=== PATIENT | male | born 1980 | race Caucasian/White ===

== ENCOUNTER 2019-04-26 23:49 | Emergency (ER) | payer OTHER ==
[2019-04-27] VITALS: BP 164/118
[2019-04-27] MEDS ORDERED: Penicillin VK TAB* 250 MG PO ONE (01:32)
[2019-04-27] MEDS ORDERED: Ketorolac INJ* 30 MG/ML 1 ML VIAL IM ONE (01:32)
--- NOTE | 2019-04-27 01:32 | ED ---
Throat Pain/Nasal Congestion - HPI Summary HPI Summary: 38 year old male presents with dental pain since yesterday. he states that pain is in his right upper jaw and radiates to his ear. Denies any chest pain or shortness breath. No pain or swelling around eye. No nausea and no vomiting. He states the cold makes the pain better. Has a history of bad teeth. - History of Current Complaint Chief Complaint: EDDentalPain Time Seen by Provider: 04/27/19 01:21 - Allergies/Home Medications Allergies/Adverse Reactions: Allergies Allergy/AdvReac Type Severity Reaction Status Date / Time MS Levothyroxine Allergy Intermediate Swelling Verified 04/27/19 01:23 [Levothyroxine] Of Face,Lips,& Throat PMH/Surg Hx/FS Hx/Imm Hx Endocrine/Hematology History: Denies: Hx Anticoagulant Therapy Respiratory History: Denies: Hx Asthma - Immunization History Date of Tetanus Vaccine: PT STATES UNSURE Date of Influenza Vaccine: NONE Infectious Disease History: No Infectious Disease History: Denies: Traveled Outside the [place] in Last 30 Days - Family History Known Family History: Positive: Non-Contributory - Social History Alcohol Use: Occasionally Substance Use Type: Reports: None Smoking Status (MU): Heavy Every Day Tobacco Smoker Review of Systems Negative: Fever Positive: Dental Pain Negative: Chest Pain Negative: Shortness Of Breath All Other Systems Reviewed And Are Negative: Yes Physical Exam Triage Information Reviewed: Yes Vital Signs On Initial Exam: Initial Vitals Temp Pulse Resp BP Pulse Ox 98.2 F 75 16 164/118 98 04/26/19 23:56 04/26/19 23:56 04/26/19 23:56 04/26/19 23:56 04/26/19 23:56 Vital Signs Reviewed: Yes Appearance: Positive: Well-Appearing Skin: Positive: Warm, Dry Head/Face: Positive: Normal Head/Face Inspection Eyes: Positive: Normal, EOMI, DARI, Conjunctiva Clear ENT: Positive: Pharynx normal, TMs normal Dental: Positive: Gross Decay/Caries @ - throughout, Other - erythema to right upper jaw Respiratory/Lung Sounds: Positive: Clear to Auscultation, Breath Sounds Present Cardiovascular: Positive: Normal, RRR Musculoskeletal: Positive: Normal Neurological: Positive: Normal Psychiatric: Positive: Normal Diagnostics - Vital Signs Vital Signs Temp Pulse Resp BP Pulse Ox 04/26/19 23:56 98.2 F 75 16 164/118 98 - Laboratory Lab Statement: Any lab studies that have been ordered have been reviewed, and results considered in the medical decision making process. EENT Course/Dx - Course Course Of Treatment: 38 year old male presents with dental pain since yesterday. he states that pain is in his right upper jaw and radiates to his ear. Denies any chest pain or shortness breath. No pain or swelling around eye. No nausea and no vomiting. He states the cold makes the pain better. Has a history of bad teeth. On exam no swelling noted. TM normal. Has erythema noted to right upper gumline. We will treat with penicillin. gave dose of toradol for pain. Told to follow up with dentist. Patient understands and agrees plan. - Differential Diagnoses Differential Diagnoses: Dental Abscess, Dental Caries, Fractured Tooth - Diagnoses Provider Diagnoses: Dental infection Discharge - Sign-Out/Discharge Documenting (check all that apply): Patient Departure Patient Received Moderate/Deep Sedation with Procedure: No - Discharge Plan Condition: Good Disposition: HOME Prescriptions: Penicillin VK TAB* [Penicillin VK 250 mg Tab*] 500 mg PO QID #27 tab Patient Education Materials: Toothache (ED) Referrals: No Primary Care Phys,NOPCP [Primary Care Provider] - Additional Instructions: Take antibiotics: 4 times a day for 7 days, first dose given in ED Use ibuprofen or tyenlol every 6 hours Return to ED if develop fever, shortness of breath, pain with eye movement or swelling around eye Establish care with primary care physician follow up with dentist as soon as possible - Billing Disposition and Condition Condition: GOOD Disposition: Home
== END 2019-04-27 01:43 | disposition home or self-care (01) ==
LOC: ED 23:49
DX: K04.7 Periapical abscess without sinus (principal); Z88.1 Allergy status to other antibiotic agents; F17.200 Nicotine dependence, unspecified, uncomplicated
CPT/HCPCS: 96372; 99282; A9270-GY; J1885

== ENCOUNTER 2019-08-18 17:07 | Emergency (ER) | payer OTHER ==
--- OUTSIDE RECORDS SUMMARY | 2019-08-18 17:31 | XMS REPORT ---
:1980 Author Organization [facility] Care Team Providers Name Role Phone Garfield Horton Unavailable Unavailable PROBLEMS Unknown Problems ALLERGIES No Information ENCOUNTERS Encounter Location Date Diagnosis [place] [facility] [address] [place], [place] [address] Formerly [facility] [address] [place], [place] [address] Formerly [facility] [address] [place] [address] [facility] [address] [place] [address] [facility] [address] [place] [address] [facility] [address] [place], [place] [address] [facility]ly [facility] [address] [place], [place], [place] R68.89 [place] [address] and Tick bite, initial encounter [id number] [place] [facility] [address] [place], [place] [address] [facility]ly [facility] [address] [place], [place], [place] K04.7 [place] [address] [place] [facility] [address] [place], [place] [address] IMMUNIZATIONS No Known Immunizations SOCIAL HISTORY Never Assessed REASON FOR REFERRAL FUNCTIONAL STATUS PLAN OF CARE VITAL SIGNS Height 66.6 in 2019-07-15 Blood pressure systolic 139 mm Hg 2019-07-15 Blood pressure diastolic 89 mm Hg 2019-07-15 MEDICATIONS Medication Instructions Dosage Frequency Start Date End Date Duration Status Tamiflu 75 MG Orally Twice a 1 capsule 12h 25 Feb, 5 day(s) Active day 2019 PROCEDURES Procedure Date Ordered Result Body Site BLOOD PRESSURE, MEASURED Jul 15, 2019 EXTRAC ERUPTED TOOTH/EXPOSED ROOT Jul 15, 2019 RESULTS No Results REASON FOR VISIT Insurance Providers [facility] Health Member Patient Patient Patient Patient Patient Subscriber Subscriber Subscriber Group Insurance Plan Plan Plan Plan ID Relationship Address Phone Name Date of ID Name Date of No Type Insurance Insurance Insurance Coverage to Subscriber Address Phone Name Dates Medicaid [address] [phone] Medicaid self Bobby [id number] [facility] [address] [place] [address] [place] [phone] [place] self Bobby [id number] Medicaid [id number] Medicaid [place] [address] [employer] [place] [phone] [place] self Bobby [id number] Medicaid [place] [address] [place] [address] Medical MEDICAL (GENERAL) HISTORY Type Description Date Medical History back pain Medical History thyroid disease
--- OUTSIDE RECORDS SUMMARY | 2019-08-18 17:31 | XMS REPORT ---
:1980 Author Organization [facility] Care Team Providers Name Role Phone Garfield Horton Unavailable Unavailable PROBLEMS Unknown Problems ALLERGIES No Information ENCOUNTERS Encounter Location Date Diagnosis [facility] [address] [place], [place] [address] [facility] [address] [place], [place] [address] [facility] [address] [place], [place] [address] [facility] [address] [place] [place], [place] [address] [facility] [address] [place], Feb, Flu[place] R68.89 [place] [address] and Tick bite, initial encounter [id number] [facility] [address] [place], [place] [address] [facility] [address] [place], [place], Dental [place] K04.7 [place] [address] [facility] [address] [place], [place] [address] IMMUNIZATIONS No Known Immunizations SOCIAL HISTORY Never Assessed REASON FOR REFERRAL FUNCTIONAL STATUS PLAN OF CARE VITAL SIGNS MEDICATIONS Medication Instructions Dosage Frequency Start Date End Date Duration Status Tamiflu 75 MG Orally Twice a 1 capsule 12h 25 Feb, 5 day(s) Active day 2019 PROCEDURES Procedure Date Ordered Result Body Site INTRAORL-PERIAPICAL 1 FILM [id number] Jul 06, 2019 LTD ORAL EVALUATION-PROBLEM FOCUS Jul 06, 2019 RESULTS No Results REASON FOR VISIT walk in Insurance Providers [facility] Health Member Patient Patient Patient Patient Patient Subscriber Subscriber Subscriber Group Insurance Plan Plan Plan Plan ID Relationship Address Phone Name Date of ID Name Date of No Type Insurance Insurance Insurance Coverage to Subscriber Address Phone Name Dates [place] [phone] [place] self Bobby [id number] Medicaid [id number] Medicaid [facility] [address] [employer] Medicaid [address] [phone] Medicaid self Bobby [id number] [address] [facility] [address] [place] [address] [place] [phone] [place] self [place] [id number] Medicaid [place] [address] [place] [address] Medical MEDICAL (GENERAL) HISTORY Type Description Date Medical History back pain Medical History thyroid disease
[2019-08-18 19:11] LABS: ABS Lymphocytes 0.8 10^3/ul (1.0-4.8); ABS Monocytes 0.7 10^3/ul (0-0.8); ABS Neutrophils 11.2 10^3/ul (1.5-7.7); Eosinophil % 0.1 %; Hematocrit 41 % (42-52); Hemoglobin 14.3 g/dL (14.0-18.0); Lymphocyte % 6.3 %; Mean Corpuscular HGB Conc 35 g/dL (31-36); Mean Corpuscular Hemoglobin 32 pg (27-31); Mean Corpuscular Volume 93 fL (80-94); Mean Platelet Volume 7.1 fL (7.4-10.4); Platelet Count 214 10^3/uL (150-450); Red Blood Count 4.42 10^6 /uL (4.18-5.48); Red Cell Distribution Width 13 % (10-15); White Blood Count 12.8 10^3/uL (3.5-10.8)
[2019-08-18 19:23] LABS: Albumin 4.2 g/dL (3.2-5.2); Albumin/Globulin Ratio 1.8 (1-3); BUN/Creatinine Ratio 19.1 (8-20); C Reactive Protein 1.91 mg/L (<8.01); Calcium 8.9 mg/dL (8.6-10.3); EGFR African American 115.8 (>60); EGFR Non-African American 95.7 (>60); Globulin 2.4 g/dL (2-4); Potassium 3.9 mmol/L (3.5-5.0); Total Bilirubin 0.4 mg/dL (0.2-1.0); Total Protein 6.6 g/dL (6.4-8.9)
[2019-08-18 19:24] LABS: Troponin I 0.01 ng/mL (<0.04)
--- NOTE | 2019-08-18 19:59 | ED ---
Substance Abuse/Use - HPI Summary HPI Summary: Patient was found by a [employer] in parking lot complaining that he was being attacked by these. Patient admits to crack cocaine use at 1500 today. Per EMS patient was tachycardia at 110 and diaphoretic. Patient currently denies any symptoms, is alert and oriented. Family denies AMS. Medical history is none. - History Of Current Complaint Chief Complaint: EDSubstanceAbuse Stated Complaint: POSSIBLE OVERDOSE Time Seen by Provider: 08/18/19 18:51 Hx Obtained From: Patient, Family/[employer] Onset/Duration of Drug/ETOH Abuse: Minutes Severity Initially: Moderate Severity Currently: None Associated Signs And Symptoms: Negative - Allergies/Home Medications Allergies/Adverse Reactions: Allergies Allergy/AdvReac Type Severity Reaction Status Date / Time levothyroxine Allergy swelling Verified 08/18/19 18:54 of face, lips, and throat Home Medications: Home Medications NK [No Home Medications Reported] 08/18/19 [History Confirmed 08/18/19] PMH/Surg Hx/FS Hx/Imm Hx Endocrine/Hematology History: Denies: Hx Anticoagulant Therapy Respiratory History: Denies: Hx Asthma History: Denies: Hx Dialysis Sensory History: Denies: Hx Eye Prosthesis Opthamlomology History: Denies: Hx Legally Blind EENT History: Denies: Hx Deafness Neurological History: Denies: Hx Dementia Psychiatric History: Denies: Hx Autism - Immunization History Date of Tetanus Vaccine: PT STATES UNSURE Date of Influenza Vaccine: NONE Infectious Disease History: No Infectious Disease History: Denies: Traveled Outside the US in Last 30 Days - Family History Known Family History: Positive: Non-Contributory - Social History Alcohol Use: Rare Substance Use Type: Reports: Cocaine, Excessive Caffeine Smoking Status (MU): Heavy Every Day Tobacco Smoker Review of Systems Constitutional: Negative Eyes: Negative ENT: Negative Cardiovascular: Negative Respiratory: Negative Gastrointestinal: Negative Genitourinary: Negative Musculoskeletal: Negative Skin: Negative Neurological: Negative Psychological: Normal All Other Systems Reviewed And Are Negative: Yes Physical Exam - Summary Physical Exam Summary: Alert and oriented. Calm and cooperative with exam. Triage Information Reviewed: Yes Vital Signs On Initial Exam: Initial Vitals Temp Pulse Resp BP Pulse Ox 98.1 F 102 24 123/74 95 08/18/19 17:21 08/18/19 17:21 08/18/19 17:21 08/18/19 17:21 08/18/19 17:21 Vital Signs Reviewed: Yes Appearance: Positive: Well-Appearing Skin: Positive: Warm Head/Face: Positive: Normal Head/Face Inspection Eyes: Positive: Normal Neck: Positive: Supple Respiratory/Lung Sounds: Positive: Clear to Auscultation Cardiovascular: Positive: Normal Abdomen Description: Positive: Nontender Musculoskeletal: Positive: Normal Neurological: Positive: Normal Psychiatric: Positive: Normal AVPU Assessment: Alert - [place] Coma Scale Best Eye Response: 4 - Spontaneous Best Motor Response: 6 - Obeys Commands Best Verbal Response: 5 - Oriented Coma Scale Total: 15 Procedures - Sedation Patient Received Moderate/Deep Sedation with Procedure: No Diagnostics - Vital Signs Vital Signs Temp Pulse Resp BP Pulse Ox 08/18/19 19:25 87 15 127/78 96 08/18/19 19:00 105 15 96 08/18/19 18:55 101 16 117/72 97 08/18/19 18:25 85 16 126/73 96 08/18/19 18:00 88 19 94 08/18/19 17:55 90 20 119/73 92 08/18/19 17:25 102 12 123/74 97 08/18/19 17:21 98.1 F 106 21 123/74 90 - Laboratory Lab Results: Lab Results 08/18/19 08/18/19 Range/Units 18:59 18:59 WBC 12.8 H (3.5-10.8) 10^3/uL RBC 4.42 (4.18-5.48) 10^6 /uL Hgb 14.3 (14.0-18.0) g/dL Hct 41 L (42-52) % MCV 93 (80-94) fL MCH 32 H (27-31) pg MCHC 35 (31-36) g/dL RDW 13 (10-15) % Plt Count 214 (150-450) 10^3/uL MPV 7.1 L (7.4-10.4) fL Neut % (Auto) 87.6 % Lymph % (Auto) 6.3 % [place] % (Auto) 5.7 % Eos % (Auto) 0.1 % Baso % (Auto) 0.3 % Absolute Neuts (auto) 11.2 H (1.5-7.7) 10^3/ul Absolute Lymphs (auto) 0.8 L (1.0-4.8) 10^3/ul Absolute Monos (auto) 0.7 (0-0.8) 10^3/ul Absolute Eos (auto) 0.0 (0-0.6) 10^3/ul Absolute Basos (auto) 0.0 (0-0.2) 10^3/ul Absolute Nucleated RBC 0.0 10^3/ul Nucleated RBC % 0.0 Sodium 137 (135-145) mmol/L Potassium 3.9 (3.5-5.0) mmol/L Chloride 108 (101-111) mmol/L Carbon Dioxide 25 (22-32) mmol/L Anion Gap 4 (2-11) mmol/L BUN 17 (6-24) mg/dL Creatinine 0.89 (0.67-1.17) mg/dL Est GFR ( Amer) 115.8 (>60) Est GFR (Non-Af Amer) 95.7 (>60) BUN/Creatinine Ratio 19.1 (8-20) Glucose 109 H (70-100) mg/dL Calcium 8.9 (8.6-10.3) mg/dL Total Bilirubin 0.40 (0.2-1.0) mg/dL AST 14 (13-39) U/L ALT 14 (7-52) U/L Alkaline Phosphatase 48 (34-104) U/L Troponin I 0.01 (<0.04) ng/mL C-Reactive Protein 1.91 (<8.01) mg/L Total Protein 6.6 (6.4-8.9) g/dL Albumin 4.2 (3.2-5.2) g/dL Globulin 2.4 (2-4) g/dL Albumin/Globulin Ratio 1.8 (1-3) Result Diagrams: 08/18/19 18:59 08/18/19 18:59 Lab Statement: Any lab studies that have been ordered have been reviewed, and results considered in the medical decision making process. Course/Dx - Course Course Of Treatment: Patient was found by a [employer] in parking lot complaining that he was being attacked by these. Patient admits to crack cocaine use at 1500 today. Per EMS patient was tachycardia at 110 and diaphoretic. Patient currently denies any symptoms, is alert and oriented. Family denies AMS. Medical history is none. Vital signs within normal limits. WBC 12.8. Labs otherwise unremarkable. EKG sinus rhythm, normal RICHARDSON, heart rate 86. Currently alert and oriented. At baseline per patient and family. - Diagnoses Provider Diagnoses: Substance abuse Discharge ED - Sign-Out/Discharge Documenting (check all that apply): Patient Departure - Discharge Plan Condition: Stable Disposition: HOME Patient Education Materials: Cocaine Abuse (ED) Referrals: No Primary Care Phys,NOPCP [Primary Care Provider] - Additional Instructions: Stop taking crack cocaine. Follow-up with outpatient resources for help discontinuing substance abuse. - Billing Disposition and Condition Condition: STABLE Disposition: Home - Attestation Statements Provider Attestation: I was available for consult. This patient was seen by the KAYY. The patient was not presented to, seen by, or examined by me. Austin Bliss MD
[2019-08-18 20:14] VITALS: BP 127/79
== END 2019-08-18 20:14 | disposition home or self-care (01) ==
LOC: ED 17:07
DX: F14.10 Cocaine abuse, uncomplicated (principal); F17.200 Nicotine dependence, unspecified, uncomplicated; Z88.8 Allergy status to other drugs, medicaments and biological substances
CPT/HCPCS: 36415; 80053; 84484; 85025; 86140; 93005; 99283

== ENCOUNTER 2019-09-04 21:26 | Emergency (ER) | payer OTHER ==
[2019-09-04] MEDS ORDERED: NS 0.9% 1000 ML** 1,000 ML IV ONE (21:52)
[2019-09-04] MEDS ORDERED: diPHENhydraMINE IV* 50 MG/ML 1 ml VIAL (BENADRYL) IV ONE (21:52)
[2019-09-04 22:16] LABS: ABS Basophils 0.1 10^3/ul (0-0.2); ABS Lymphocytes 0.9 10^3/ul (1.0-4.8); ABS Neutrophils 12.3 10^3/ul (1.5-7.7); Eosinophil % 0.1 %; Hematocrit 43 % (42-52); Hemoglobin 14.6 g/dL (14.0-18.0); Lymphocyte % 6.6 %; Mean Corpuscular HGB Conc 34 g/dL (31-36); Mean Corpuscular Hemoglobin 32 pg (27-31); Mean Corpuscular Volume 95 fL (80-94); Mean Platelet Volume 6.8 fL (7.4-10.4); Nucleated Red Blood Cells % 0.1; Platelet Count 230 10^3/uL (150-450); Red Blood Count 4.54 10^6 /uL (4.18-5.48); Red Cell Distribution Width 14 % (10-15); White Blood Count 14.3 10^3/uL (3.5-10.8)
--- NOTE | 2019-09-04 22:17 | ED ---
Complex/Multi-Sys Presentation - HPI Summary HPI Summary: 38-year-old male presents with allergic reaction. He states he got stung in his left arm about an hour ago. He states that since then he's had a sore throat and dizziness. He states he feels a little dehydrated. Denies any chest pressure or shortness of breath. Admits to nausea but no vomiting or abdominal pain. He hasn't taking anything for symptoms. Never had this reaction before. He did drink some alcohol today. Denies any drug use. No rash. - History Of Current Complaint Chief Complaint: EDAllergicReaction Time Seen by Provider: 09/04/19 21:46 - Allergies/Home Medications Allergies/Adverse Reactions: Allergies Allergy/AdvReac Type Severity Reaction Status Date / Time levothyroxine Allergy swelling Verified 09/04/19 22:13 of face, lips, and throat PMH/Surg Hx/FS Hx/Imm Hx Endocrine/Hematology History: Denies: Hx Anticoagulant Therapy Respiratory History: Denies: Hx Asthma History: Denies: Hx Dialysis Sensory History: Denies: Hx Eye Prosthesis, Hx Legally Blind, Hx Deafness Opthamlomology History: Denies: Hx Eye Prosthesis, Hx Legally Blind Neurological History: Denies: Hx Dementia Psychiatric History: Denies: Hx Autism - Immunization History Date of Tetanus Vaccine: PT STATES UNSURE Date of Influenza Vaccine: NONE Infectious Disease History: No Infectious Disease History: Denies: Traveled Outside the [place] in Last 30 Days - Family History Known Family History: Positive: Non-Contributory - Social History Alcohol Use: Rare Substance Use Type: Reports: Cocaine, Excessive Caffeine Smoking Status (MU): Heavy Every Day Tobacco Smoker Review of Systems Negative: Fever Positive: Sore Throat Negative: Chest Pain Negative: Shortness Of Breath Negative: Rash All Other Systems Reviewed And Are Negative: Yes Physical Exam Triage Information Reviewed: Yes Vital Signs On Initial Exam: Initial Vitals Temp Pulse Resp BP Pulse Ox 98.8 F 115 20 146/92 96 09/04/19 21:29 09/04/19 21:29 09/04/19 21:29 09/04/19 21:29 09/04/19 21:29 Vital Signs Reviewed: Yes Appearance: Positive: Well-Appearing Skin: Positive: Warm, Dry Head/Face: Positive: Normal Head/Face Inspection Eyes: Positive: Normal, EOMI, DARI, Conjunctiva Clear ENT: Positive: Normal ENT inspection, Pharynx normal, TMs normal Respiratory/Lung Sounds: Positive: Clear to Auscultation, Breath Sounds Present Cardiovascular: Positive: Normal, RRR Abdomen Description: Positive: Nontender, Soft Bowel Sounds: Positive: Present Musculoskeletal: Positive: Normal Neurological: Positive: Normal Psychiatric: Positive: Normal Procedures - Sedation Patient Received Moderate/Deep Sedation with Procedure: No Diagnostics - Vital Signs Vital Signs Temp Pulse Resp BP Pulse Ox 09/04/19 22:11 95 122/78 95 09/04/19 21:29 98.8 F 115 20 146/92 96 - Laboratory Lab Results: Lab Results 09/04/19 Range/Units 22:08 WBC 14.3 H (3.5-10.8) 10^3/uL RBC 4.54 (4.18-5.48) 10^6 /uL Hgb 14.6 (14.0-18.0) g/dL Hct 43 (42-52) % MCV 95 H (80-94) fL MCH 32 H (27-31) pg MCHC 34 (31-36) g/dL RDW 14 (10-15) % Plt Count 230 (150-450) 10^3/uL MPV 6.8 L (7.4-10.4) fL Neut % (Auto) 85.7 % Lymph % (Auto) 6.6 % [place] % (Auto) 7.2 % Eos % (Auto) 0.1 % Baso % (Auto) 0.4 % Absolute Neuts (auto) 12.3 H (1.5-7.7) 10^3/ul Absolute Lymphs (auto) 0.9 L (1.0-4.8) 10^3/ul Absolute Monos (auto) 1.0 H (0-0.8) 10^3/ul Absolute Eos (auto) 0.0 (0-0.6) 10^3/ul Absolute Basos (auto) 0.1 (0-0.2) 10^3/ul Absolute Nucleated RBC 0.0 10^3/ul Nucleated RBC % 0.1 Result Diagrams: 09/04/19 22:08 09/04/19 22:08 Lab Statement: Any lab studies that have been ordered have been reviewed, and results considered in the medical decision making process. - EKG No standard instances Cardiac Rate: NL EKG Rhythm: Sinus Rhythm EKG Comparison: No Significant Change Summary of EKG Findings: sinus rhythm Re-Evaluation - Re-Evaluation First Eval Re-Evaluation Time: 22:44 Change: Improved Comment: feeling better Complex Multi-Symp Course/Dx Course Of Treatment: 38-year-old male presents with allergic reaction. He states he got stung in his left arm about an hour ago. He states that since then he's had a sore throat and dizziness. He states he feels a little dehydrated. Denies any chest pressure or shortness of breath. Admits to nausea but no vomiting or abdominal pain. He hasn't taking anything for symptoms. Never had this reaction before. He did drink some alcohol today. Denies any drug use. No rash. On exam no rash. lungs CTA. Pharynx normal. wbc elevated. crp normal. troponin .02. ekg sinus rhythm. Gave fluids and Benadryl patient is feeling better. We'll discharge to have continued Benadryl. Patient understands agrees the plan. - Diagnoses Differential Diagnoses/HQI/PQRI: Metabolic Abnormality, Other - allergic reaction, anaphylaxis Provider Diagnoses: Bee sting Discharge ED - Sign-Out/Discharge Documenting (check all that apply): Patient Departure - Discharge Plan Condition: Good Disposition: HOME Patient Education Materials: Insect Bite or Sting (ED) Referrals: No Primary Care Phys,NOPCP [Primary Care Provider] - Additional Instructions: Take Benadryl every 6 hours follow up with primary Return to ED if develop any new or worsening symptoms - Billing Disposition and Condition Condition: GOOD Disposition: Home
[2019-09-04 22:33] LABS: Albumin 4.8 g/dL (3.2-5.2); Albumin/Globulin Ratio 1.7 (1-3); BUN/Creatinine Ratio 10.5 (8-20); C Reactive Protein 5.87 mg/L (<8.01); Calcium 9.6 mg/dL (8.6-10.3); EGFR African American 72.8 (>60); EGFR Non-African American 60.2 (>60); Globulin 2.9 g/dL (2-4); Potassium 3.6 mmol/L (3.5-5.0); Total Bilirubin 0.5 mg/dL (0.2-1.0); Total Protein 7.7 g/dL (6.4-8.9)
[2019-09-04 22:35] LABS: Troponin I 0.02 ng/mL (<0.04)
[2019-09-04 23:16] VITALS: BP 130/82
== END 2019-09-04 23:13 | disposition home or self-care (01) ==
LOC: ED 21:26
DX: T63.441A Toxic effect of venom of bees, accidental (unintentional), initial encounter (principal); R42 Dizziness and giddiness; J02.9 Acute pharyngitis, unspecified; R11.0 Nausea; Y92.9 Unspecified place or not applicable; Z88.8 Allergy status to other drugs, medicaments and biological substances; F17.200 Nicotine dependence, unspecified, uncomplicated
CPT/HCPCS: 36415; 80053; 84484; 85025; 86140; 93005; 99282; J1200

== ENCOUNTER 2019-09-21 03:41 | Emergency (ER) | payer OTHER ==
[2019-09-21] MEDS ORDERED: NS 0.9% 1000 ML** 1,000 ML IV ONE (03:48)
[2019-09-21 04:20] LABS: ABS Basophils 0.1 10^3/ul (0-0.2); ABS Eosinophils 0.1 10^3/ul (0-0.6); ABS Lymphocytes 1.3 10^3/ul (1.0-4.8); ABS Monocytes 0.9 10^3/ul (0-0.8); ABS Neutrophils 13.3 10^3/ul (1.5-7.7); Eosinophil % 0.3 %; Hematocrit 43 % (42-52); Hemoglobin 14.8 g/dL (14.0-18.0); Lymphocyte % 8.5 %; Mean Corpuscular HGB Conc 35 g/dL (31-36); Mean Corpuscular Hemoglobin 32 pg (27-31); Mean Corpuscular Volume 93 fL (80-94); Mean Platelet Volume 6.6 fL (7.4-10.4); Platelet Count 288 10^3/uL (150-450); Red Blood Count 4.57 10^6 /uL (4.18-5.48); Red Cell Distribution Width 13 % (10-15); White Blood Count 15.6 10^3/uL (3.5-10.8)
[2019-09-21 04:25] LABS: INR 1.03 (0.82-1.09)
[2019-09-21 04:37] LABS: Albumin 4.7 g/dL (3.2-5.2); Albumin/Globulin Ratio 1.7 (1-3); BUN/Creatinine Ratio 17.3 (8-20); Calcium 9.3 mg/dL (8.6-10.3); EGFR Non-African American 106.6 (>60); Globulin 2.7 g/dL (2-4); Potassium 3.9 mmol/L (3.5-5.0); Total Bilirubin 0.3 mg/dL (0.2-1.0); Total Protein 7.4 g/dL (6.4-8.9)
[2019-09-21 04:47] LABS: Urine Appearance Clear; Urine Bilirubin Negative (Negative); Urine Blood Negative (Negative); Urine Color Straw; Urine Glucose Negative (Negative); Urine Ketones Negative (Negative); Urine Nitrite Negative (Negative); Urine Protein Negative (Negative); Urine Specific Gravity 1.006 (1.010-1.030); Urine Urobilinogen Negative (Negative)
[2019-09-21] MEDS ORDERED: Ketorolac INJ* 30 MG/ML 1 ML VIAL IV PUSH ONE (05:05)
[2019-09-21] MEDS ORDERED: Iohexol 300* (CONTRAST) 10 ML SDV IV ONE (05:08)
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
[2019-09-21 05:16] LABS: Urine Benzodiazepine Screen None Detected (None Detect); Urine Opiates Screen None Detected (None Detect)
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
[2019-09-21 07:45] VITALS: BP 110/62
== END 2019-09-21 07:40 | disposition home or self-care (01) ==
LOC: ED 03:41
DX: S42.031A Displaced fracture of lateral end of right clavicle, initial encounter for closed fracture (principal); S61.412A Laceration without foreign body of left hand, initial encounter; S61.411A Laceration without foreign body of right hand, initial encounter; M54.2 Cervicalgia; V49.9XXA Car occupant (driver) (passenger) injured in unspecified traffic accident, initial encounter; Y92.410 Unspecified street and highway as the place of occurrence of the external cause; F10.129 Alcohol abuse with intoxication, unspecified; Y90.6 Blood alcohol level of 120-199 mg/100 ml; Z88.8 Allergy status to other drugs, medicaments and biological substances; F17.200 Nicotine dependence, unspecified, uncomplicated
CPT/HCPCS: 36415; 70450; 71260; 72125; 74177; 80053; 80307; 80320; 81003; 83605; 84484; 85025; 85610; 93005; 96361; 96374; 99284; G0480; J1885; Q9967

== ENCOUNTER 2020-02-09 06:52 | Day surgery (SDC) | payer OTHER ==
[~2020-02-09 06:52] MED LIST: Acetaminophen TAB* 325 MG ONE; Acetaminophen TAB* 325 MG PO ONE; Buffered Lidocaine 1% SYRIN* 1 ML/SYRINGE INTRADERM ONE; Lactated Ringers 1000 ML Bag* 1,000 ML IV SCH; ceFAZolin 2 GM PREMIX in ORs 2 GM/50 ML BAG ONE
[2020-02-09] MEDS ORDERED: Midazolam* 1 MG/ML 2 ML VIAL (2 MG) ONE (07:02)
[2020-02-09] MEDS ORDERED: Propofol* 10 MG/ML 20 ML BTL ONE (07:02)
[2020-02-09] MEDS ORDERED: Succinylcholine* 20 MG/ML 10 ML VIAL ONE (07:02)
[2020-02-09] MEDS ORDERED: Lidocaine 2% PF * 5 ML VIAL ONE (07:02)
[2020-02-09] MEDS ORDERED: fentaNYL* 50 MCG/ML 5 ML VIAL (250 MCG VIAL) ONE (07:02)
[2020-02-09] MEDS ORDERED: Bupivacaine 0.5% W/EPI SDV* 30 ML VIAL ONE (07:09)
[2020-02-09] MEDS ORDERED: Ketorolac INJ* 30 MG/ML 1 ML VIAL ONE (07:48)
[2020-02-09] MEDS ORDERED: Ondansetron INJ* 2 MG/ML VIAL ONE (07:48)
[2020-02-09] MEDS ORDERED: Dexamethasone IV* 4 MG/ML 1 ML (4 MG) ONE (07:48)
[2020-02-09] MEDS ORDERED: oxyCODONE TAB* 5 MG TAB PO PRN (08:13)
[2020-02-09] MEDS ORDERED: diPHENhydraMINE IV* 50 MG/ML 1 ml VIAL (BENADRYL) IV PRN (08:13)
[2020-02-09] MEDS ORDERED: PROCHLORPERAZINE INJ 5 MG/ML 2 ML VIAL IV PRN (08:13)
[2020-02-09] MEDS ORDERED: Naloxone* 0.4 MG/ML 1 ML VIAL IV PRN (08:13)
[2020-02-09] MEDS ORDERED: HYDROmorphone INJ1* 1 MG/ML SYRINGE IV PRN (08:13)
[2020-02-09] MEDS ORDERED: HYDROmorphone INJ1* 1 MG/ML SYRINGE ONE (08:20)
[2020-02-09 09:48] VITALS: BP 134/92
--- NOTE | 2020-02-09 13:07 | OP ---
OPERATIVE REPORT: DATE OF OPERATION: 02/09/20 DATE OF : 80 SURGEON: Yeison Wang MD. NEWS ANALYST: EDIS Bryant. A physician fleet administrative assistant was required for the length of the procedure for patient positioning, retractio n, and closure. Not all foreign body removals require an fleet administrative assistant. This case does as the plate is placed deeper, and the clavicle just as open reduction internal fixation surgery requires an assistan t, so too does removal of this plate require an fleet administrative assistant. ANESTHESIOLOGIST: Dr. Umm Gonzalez. ANESTHESIA: General anesthesia, local anesthesia Marcaine 10 cc. PRE-OP DIAGNOSES: 1. Status post 10/06/19 open reduction internal fixation right lateral clavicle fracture with clavic le hook plate. 2. Retained hardware, right clavicle hook plate. POST-OP DIAGNOSES: 1. Status post 10/06/19 open reduction internal fixation right lateral clavicle fracture with clavic le hook plate. 2. Retained hardware, right clavicle hook plate. OPERATIVE PROCEDURE: Removal of foreign body, right lateral clavicle hook plate. ANTIBIOTICS: Ancef 2 g IV. IV FLUIDS: See Anesthesia note. [id number] TIME: 38 minutes. SPECIMEN: Right Synthes clavicle hook plate with 5 screws removed. COMPLICATIONS: None. ESTIMATED BLOOD LOSS: Minimal. INDICATIONS FOR PROCEDURE: The patient is a 39-year-old man, right-hand dominant, cashiers bussers food runners, who under went surgery on 10/06/19, consisting an open reduction internal fixation of right lateral clavicle fr acture with clavicle hook plate. Surgery was indicated due to the displacement at the lateral clavic le fracture site. Plate was placed with the understanding that it would need to be removed 3 to 4 mo nths postoperative, which is the circulation crew leader's suggestion for this plate and the orthopedic standard for clavicle hook plates. These plates need to be removed to avoid erosion of the acromion or injur y to the rotator cuff. The patient had an uneventful postoperative course. He is just over 4 months and we signed him up fo r removal of hardware. Discussed risks and potential complications of surgery. These included nonunion and need to replace the plate or need to, in the future, place a plate. The patient still had some tenderness to palpati on at the fracture site as well as some lucency on preoperative imaging. He is a cigarette smoker, w hich is certainly a risk factor for delayed union or nonunion. However, given that we were over 4 mo nths postoperative after the first index procedure, I thought it was judicious to move forward with r emoval of hardware. DESCRIPTION OF PROCEDURE: In preoperative holding, the patient signed a written consent. Operative extremity was marked in preoperative holding. The patient was taken back to the operating room, formerly [facility] ed supine on the operating room table. Sedated and intubated. Converted into the beach-chair positio n. Right shoulder was prepped and draped. Surgical time-out formally performed. I made a skin incision through much of the prior surgical incision scar. I dissected down to plate. Debrided soft tissue off of plate with rongeur, curette, periosteal elevator. Identified the screws . I removed the screws. Tested the fracture site. No gross movement at fracture site with vigorous manipulation. Removed so me fibrous tissue off the superior aspect of the clavicle with a rongeur. Debrided screw tunnels in the clavicle with the small curette available. Upon opening dissection, I had cauterized some minima l bleeding with electrocautery and likewise that the step did so. Irrigation. Closure. Closure of the deltopectoral trapezial fascia with [id number] stitches using Vicryl 0 suture. Closure of more superficial tissue with figure-of- eight stitches using Vicryl 2-0 suture. Closure of the subcutaneous tissue with buried simple stitches using Vicryl 2-0 and Vicryl 3-0 suture . Closure of the subcuticular layer with a running stitch using Monocryl 3-0 suture. Mastisol, Ster i-Strips. Local anesthesia injected, 10 cc. 4x4s, Tegaderms. The patient placed in a sling. The p atient was awakened, extubated, and transferred to the PACU. DISPOSITION: We suggested sling at all times and to follow up in clinic. The patient will follow up in clinic approximately 1 week postoperatively. Wound care instructions provided. In clinic, we wi ll obtain x-rays to confirm no loss of reduction at the fracture site and we will discuss return to f ull activity timeline. Pain medication was prescribed to take as required. [id number]/[facility] #: [id number]
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
== END 2020-02-09 10:17 | disposition home or self-care (01) ==
LOC: OREAST 06:52
PROVIDERS: ATTEND Orthopaedic Surgery
DX: Z47.2 Encounter for removal of internal fixation device (principal); F17.200 Nicotine dependence, unspecified, uncomplicated; K21.9 Gastro-esophageal reflux disease without esophagitis; F43.21 Adjustment disorder with depressed mood; S42.031D Displaced fracture of lateral end of right clavicle, subsequent encounter for fracture with routine healing; X58.XXXD Exposure to other specified factors, subsequent encounter; Y92.9 Unspecified place or not applicable
CPT/HCPCS: 88300; A9270-GY; J0330; J0690; J1100; J1170; J1885; J2250; J2405; J2704; J3010

== ENCOUNTER 2024-08-20 15:33 | Observation (INO) ==
[2024-08-20] MEDS: Lactated Ringers 1000 ml BAG 1,000 ML IV ONE (15:40)
[2024-08-20] MEDS: Iodixanol (CONTRAST) 320 MG/ML 100 ML SDV IV ONE (16:02)
[2024-08-20 16:24] LABS: ABS Basophils 0.1 10^3/uL (0.0-0.1); ABS Eosinophils 0.1 10^3/uL (0.0-0.5); ABS Lymphocytes 3.1 10^3/uL (1.0-4.8); ABS Monocytes 0.6 10^3/uL (0.0-1.1); ABS Neutrophils 4.1 10^3/uL (1.5-7.6); ABS Nucleated RBC 0.01 10^3/ul; Eosinophil % 1.2 %; Mean Corpuscular Hemoglobin 33.6 pg (27-33); Mean Corpuscular Hgb Conc 35.8 g/dL (31-36); Mean Corpuscular Volume 93.8 fL (80-97); Mean Platelet Volume 7.3 fL (7.5-11.2); Nucleated Red Blood Cells % 0.1 %/100WBC (0.0-0.8); Platelet Count 215 10^3/uL (150-450); Red Blood Count 4.15 10^6/uL (4.06-5.63); White Blood Count 7.9 10^3/uL (3.6-10.2)
[2024-08-20 16:32] LABS: INR 1.1 (0.85-1.14)
[2024-08-20 16:51] LABS: High Sens Troponin Baseline < 3 pg/mL (<20)
[2024-08-20 17:01] LABS: ALT 24 U/L (7-52); AST 20 U/L (13-39); Albumin 3.8 g/dL (3.2-5.2); Albumin/Globulin Ratio 1.7 (1-3); Alcohol, S 116 mg/dL (<13); Alkaline Phosphatase 56 U/L (35-149); Anion Gap 6 mmol/L (2-16); Blood Urea Nitrogen 23 mg/dL (6-24); CO2 Carbon Dioxide 25 mmol/L (22-32); Calcium 8.3 mg/dL (8.6-10.3); Chloride 103 mmol/L (101-111); Creatine Kinase 67 U/L (10-223); Creatinine, Serum 0.91 mg/dL (0.67-1.17); Globulin 2.3 g/dL (2-4); Glucose 95 mg/dL (70-100); Lipase 26 U/L (11.0-82.0); Potassium 3.7 mmol/L (3.5-5.0); Sodium 134 mmol/L (135-145); Total Bilirubin 0.4 mg/dL (0.2-1.0); Total Protein 6.1 g/dL (6.4-8.9); eGFR CKD-EPI 107.2 (>60)
[2024-08-20] MEDS: fentaNYL 100 mcg/2 ml 50 MCG/ML VIAL IV SLOW PU ONE (17:20)
[2024-08-20] MEDS: Acetaminophen IV 1 GM/100ML 1,000 MG/100 ML BAG IV ONE (17:58)
[2024-08-20 18:44] LABS: High Sensitivity Troponin 1 Hr < 3 pg/mL (<20)
[2024-08-20] MEDS ORDERED: Sulfur Hexaflouride MICROSPHR 25 MG VIAL IV PRN (20:03)
[2024-08-20 20:57] LABS: Urine Appearance Clear; Urine Bacteria Absent /HPF (Absent); Urine Bilirubin Negative (Negative); Urine Blood Negative (Negative); Urine Color Light-Yellow; Urine Glucose Negative (Negative); Urine Ketones Negative (Negative); Urine Nitrite Negative (Negative); Urine Protein 1+ (>=30 mg/dL) (Negative); Urine Red Blood Cell 1+(3-5/hpf) /HPF (0-Trace); Urine Specific Gravity >1.050 (1.002-1.030); Urine Squamous Epithelial Cell Present /HPF (Absent); Urine Urobilinogen Negative (Negative); Urine White Blood Cell Absent /HPF (0-Trace)
[2024-08-20 21:12] LABS: Urine Benzodiazepine Screen None Detected (None Detect); Urine Cannabinoids Screen None Detected (None Detect); Urine Opiates Screen None Detected (None Detect)
[2024-08-21] MEDS: Nicotine GUM 2MG FRUIT FLAVOR PO PRN (04:07)
[2024-08-21 09:45] LABS: Calcium 8.9 mg/dL (8.6-10.3); Creatinine, Serum 0.9 mg/dL (0.67-1.17); Potassium 3.7 mmol/L (3.5-5.0); eGFR CKD-EPI 108.7 (>60)
[2024-08-23] MEDS: Multivitamins/Minerals TAB PO SCH (12:35)
[2024-08-23 16:10] VITALS: BP 150/94
== END 2024-08-23 18:00 | disposition home or self-care (01) ==
LOC: ED 15:33 → EDHOLD 15:33 → MEDTELE 08-21 02:06
PROVIDERS: ADMIT Internal Medicine; ATTEND Family Medicine